=== PATIENT | born 1965 | race Caucasian/White ===

== ENCOUNTER 2023-05-11 09:18 | Outpatient (OUT) | payer OTHER, SELFPAY ==
--- NOTE | 2023-05-11 | XR_ITS ---
[address] [address] Patient Name: JAMA FAIR MRN: [id number] date: 1965 Sex: U Assigned Patient Location: RAD Current Patient Location: [facility] Accession/Order Number: [id number] Exam Date: 05/11/2023 09:35 Report Date: 05/11/2023 10:08 At the request of: DAPHNE HUNTER Procedure: XR ankle BETTY min 3V EXAMINATION: XR ankle BETTY min 3V HISTORY: BILATERAL ANKLE PAIN COMPARISON: No relevant comparison available. FINDINGS: RIGHT FINDINGS: BONES: No acute fracture or dislocation. Mild degenerative changes with marginal osteophyte formation of the midfoot. Minimal enthesopathic spurring Achilles insertion of the calcaneus SOFT TISSUES: Negative. No visible soft tissue swelling. OTHER: Negative. LEFT FINDINGS: BONES: No acute fracture or dislocation. Mild degenerative changes with marginal osteophyte formation of the midfoot. Minimal enthesopathic spurring Achilles insertion of the calcaneus SOFT TISSUES: Mild to moderate diffuse ankle soft tissue swelling OTHER: Negative. XR/XR ankle BETTY min 3V IMPRESSION: RIGHT CONCLUSION: Mild osteoarthritis LEFT CONCLUSION: Mild osteoarthrosis with mild to moderate soft tissue swelling Electronically authenticated by: ANTHONY LAWSON Date: 05/11/2023 10:08
== END 2023-05-11 09:19 | disposition home or self-care (01) ==
LOC: RAD 09:21
PROVIDERS: Visit Provider Physician Assistant
DX: M25.571 Pain in right ankle and joints of right foot (principal); M25.572 Pain in left ankle and joints of left foot
CPT/HCPCS: 73610